=== PATIENT | female | born 1940 | race Caucasian/White ===

== ENCOUNTER 2017-11-12 10:28 | Emergency (ER) | payer MEDICARE, OTHER ==
[2017-11-12 11:06] LABS: #Eosinphils 0.2 thou/uL (0.0-0.7); #Monocytes 0.5 thou/uL (0.11-0.59); #Neutrophils 6.9 thou/uL (1.40-6.50); %Basophils 0.5 % (0.0-1.0); %Eosinophils 2.3 % (0.0-10.0); %Lymphocytes 20.8 % (21.0-51.0); %Monocytes 5.2 % (0.0-10.0); %Neutrophils 71.3 % (42.0-75.0); Hemoglobin 11.4 g/dL (12.0-16.0); Mean Corpuscular HGB CONC 31.4 g/dL (32.0-36.0); Mean Corpuscular Hemoglobin 30.3 pg (27.0-31.0); Mean Corpuscular Volume 96.3 fl (81.0-99.0); Platelet Count 406 thou/uL (130-400); RBC Distribution Width 12.8 % (11.5-14.5); Red Blood Cell (RBC) Count 3.75 mill/uL (4.20-5.40); White Blood Cell (WBC) Count 9.7 thou/uL (4.8-10.8)
[2017-11-12 11:23] LABS: Bilirubin Negative (Negative); Blood, Urine Small (Negative); Clarity CLOUDY (Clear); Glucose, Urine (Dipstick) Negative (Negative); Leukocyte Large (Negative); Nitrite Negative (Negative); Protein, Urine (Dipstick) Negative (Neg-Trace); Specific Gravity, Urine 1.012 (1.002-1.036); pH, Urine 6.5 (5.0-9.0)
[2017-11-12 11:25] LABS: Bacteria/HPF 1+ HPF (None Seen); Hyaline Casts/LPF 0-3 HYALINE CAST LPF (0-3 Hyaline); Pathc Cast-AUWi Flag 0.13 (0-2.49); Squamous Epithelial None Seen HPF (0-3)
[2017-11-12 11:29] LABS: ALT (SGPT) 19 U/L (8-55); AST (SGOT) 34 U/L (5-34); Albumin 3.5 g/dL (3.4-4.8); Alkaline Phosphatase 153 U/L (40-150); Anion Gap 13 mmol/L (10-20); BUN (Urea Nitrogen) 11 mg/dL (9.8-20.1); Bilirubin, Total 0.4 mg/dL (0.2-1.2); CK (CPK) 15 U/L (29-168); Calc. Creatinine Clearance 0 mL/min (70-130); Calcium 9.5 mg/dL (7.8-10.44); Carbon Dioxide 27 mmol/L (23-31); Chloride 98 mmol/L (98-107); Estimated GFR-MDRD 86; Globulin 4.3 g/dL (2.4-3.5); Glucose 117 mg/dL (83-110); Potassium 4.4 mmol/L (3.5-5.1); Protein, Total 7.8 g/dL (6.0-8.3); Sodium 134 mmol/L (136-145)
[2017-11-12 11:32] LABS: CKMB 0.6 ng/mL (0-6.6); Troponin I Less than 0.010 ng/mL (< 0.028)
--- NOTE | 2017-11-12 11:48 | RAD ---
FRONTAL VIEW CHEST: Date: 11/12/17 COMPARISON: 03/20/10. INDICATION: Chest pain. FINDINGS: There is no evidence of consolidation. Cardiomediastinal silhouette is accentuated by portable techni que. Electronic device overlies the midline of the thorax. There is vascular calcification. IMPRESSION: No focal consolidation. POS: [facility]
--- NOTE | 2017-11-14 13:05 | EKG ---
Test Reason : ER INDICATION Blood Pressure : / mmHG Vent. Rate : 080 BPM Atrial Rate : 080 BPM P-R Int : 170 ms QRS Dur : 080 ms QT Int : 438 ms P-R-T Axes : 038 007 026 degrees QTc Int : 505 ms Normal sinus rhythm Prolonged QT Abnormal ECG Confirmed by ANSLEY MARTINEZ, JANI ([id number]), editor managing newspaper MAAME PIERCE ([id number]) on 11/14/2017 1:05:25 PM Referred By: Confirmed By:JANI PANCHAL MD
== END 2017-11-12 13:57 | disposition home or self-care (01) ==
LOC: ERS 10:28
DX: N39.0 Urinary tract infection, site not specified (principal); G62.9 Polyneuropathy, unspecified; R10.9 Unspecified abdominal pain; I25.10 Atherosclerotic heart disease of native coronary artery without angina pectoris; E03.9 Hypothyroidism, unspecified; K21.9 Gastro-esophageal reflux disease without esophagitis; I10 Essential (primary) hypertension; Z79.01 Long term (current) use of anticoagulants; Z79.899 Other long term (current) drug therapy
CPT/HCPCS: 71045; 80053; 81003; 81015; 82553; 84484; 85025; 87077; 87086; 87186; 93005; 94760

== ENCOUNTER 2018-11-24 16:20 | Emergency (ER) | payer MEDICARE, OTHER ==
[2018-11-24] MEDS ORDERED: HYDROcodone/Acetaminophen 5/325 mg Tablet ONE (17:59)
--- NOTE | 2018-11-24 19:02 | RAD ---
LEFT FOOT THREE VIEWS: 11/24/18 HISTORY: Foot pain after a fall. The bones are very demineralized. There is some cortical irregularity along the metatarsal necks of t he second, third and fourth toes suspicious for subtle fractures. Calcaneal spurs are noted. Arthriti c changes of the first metatarsophalangeal joint are seen. IMPRESSION: Findings compatible with some very subtle fractures of the second, third and fourth metatarsal necks. POS: [facility]
== END 2018-11-24 18:44 | disposition home or self-care (01) ==
LOC: SCSER 16:20
DX: S92.322A Displaced fracture of second metatarsal bone, left foot, initial encounter for closed fracture (principal); S92.332A Displaced fracture of third metatarsal bone, left foot, initial encounter for closed fracture; S92.342A Displaced fracture of fourth metatarsal bone, left foot, initial encounter for closed fracture; F41.9 Anxiety disorder, unspecified; F32.9 Major depressive disorder, single episode, unspecified; K21.9 Gastro-esophageal reflux disease without esophagitis; E03.9 Hypothyroidism, unspecified; Z79.899 Other long term (current) drug therapy; W18.30XA Fall on same level, unspecified, initial encounter